=== PATIENT | female | born 1995 | race African-American/Black ===

== ENCOUNTER 2018-09-29 18:13 | Emergency (ER) | payer MEDICAID, OTHER ==
[~2018-09-29] VITALS: Ht 152.4 cm; Wt 49.0 kg
[2018-09-29] MEDS ORDERED: ACETAMINOPHEN 325MG TABLET PO ONE (20:30)
[2018-09-29 20:39] LABS: CHLORIDE 109 mEq/L (98-107)
[2018-09-29 20:43] LABS: EOSINOPHILS % 2.9 % (0.0-5.0); HEMATOCRIT. 37.6 % (36.0-48.0); HEMOGLOBIN. 12.3 g/dL (12.0-16.0); LYMPHOCYTES % 20.8 % (20.0-50.0); MEAN CORPUSCULAR HEMOGLOBIN 30.5 pg (28.0-32.0); MEAN CORPUSCULAR VOLUME 92.8 fL (81.0-99.0); MEAN PLATELET VOLUME 9.4 fl (7.4-10.4); MONOCYTES % 7.7 % (2.0-8.0); NEUTROPHILS % 67.6 % (40.0-76.0); PLATELET 276 x1000/uL (130-400); RED BLOOD CELL COUNT 4.05 mill/uL (4.2-5.4)
[2018-09-29 20:51] LABS: B-HCG QUANTITATIVE < 1 mIU/mL (<3)
[2018-09-29] MEDS ORDERED: KETOROLAC 30MG/ML VIAL IM ONE (22:15)
[2018-09-29 23:12] VITALS: BP 110/56
== END 2018-09-29 23:13 | disposition home or self-care (01) ==
LOC: ER 18:13
DX: R10.30 Lower abdominal pain, unspecified (principal); R11.0 Nausea; F12.10 Cannabis abuse, uncomplicated; Z98.890 Other specified postprocedural states
CPT/HCPCS: 36415; 76830; 76856; 80053; 84702; 85025; 86850; 86900; 86901; 96372; 99284; J1885; Z7610